=== PATIENT | male | born 2000 | race Caucasian/White ===

== ENCOUNTER 2020-03-28 20:39 | Emergency (ER) | payer OTHER ==
[~2020-03-28] VITALS: Ht 182.9 cm; Wt 68.2 kg
[2020-03-28] MEDS ORDERED: BACITRACIN 0.9 GM PACKET OINTMENT TP ONE (21:30)
[2020-03-28 22:20] VITALS: BP 129/70
[2020-03-28] MEDS ORDERED: PERTUSS(ACELL),DIPH,TET VAC/PF 0.5 ML VIAL IM ONE (22:30)
== END 2020-03-28 23:00 | disposition home or self-care (01) ==
LOC: EMS 20:41
DX: S63.501A Unspecified sprain of right wrist, initial encounter (principal); W18.39XA Other fall on same level, initial encounter; Y93.89 Activity, other specified; Y92.89 Other specified places as the place of occurrence of the external cause; Y99.8 Other external cause status
CPT/HCPCS: 90471; 90715